=== PATIENT | male | born 2000 | race Caucasian/White ===

== ENCOUNTER 2020-05-13 21:49 | Emergency (ER) | payer OTHER, SELFPAY ==
[2020-05-13 22:09] VITALS: BP 128/64; PULSE 89; RESP 18; TEMP 37.3; O2SAT 97; BMI 24.4
--- NOTE | 2020-05-13 23:07 | ED_ITS ---
HPI - Wound/Laceration General Chief Complaint: Wound/Laceration Stated Complaint: Lip laceration Time Seen by Provider: 05/13/20 22:19 Source: patient Mode of arrival: ambulatory History of Present Illness HPI narrative: This is a 19-year-old male without significant past medical history who was struck in the mouth with a hockey puck denies any loss of consciousness and comes in with a hemostatic lip laceration. Unknown tetanus. Related Data Allergies Allergy/AdvReac Type Severity Reaction Status Date / Time No Known Allergies Allergy Verified 05/13/20 22:14 [No Known Allergies*] Review of Systems Review of Systems: Pertinent positives and negatives as stated in HPI 10 point review of systems is otherwise negative. [facility] Past Medical History Source: nursing notes reviewed Medical History No known health problems Social History Social History Alcohol intake: never Smoked in Last 30 Days: No Use of substances other than those prescribed or required for medical reasons: No Any prior treatment program specific to substance use: No Advance Directives: No Advance Directives Information Provided: No Physical Exam Vital Signs: Vital Signs: Last Vital Signs Temp 99.2 F 05/13/20 22:09 Pulse 89 05/13/20 22:09 Resp 18 05/13/20 22:09 BP 128/64 05/13/20 22:09 Pulse Ox 97 05/13/20 22:09 Body Mass Index 24.4 VITAL SIGNS: Reviewed. GENERAL: Well developed, well nourished, in no acute distress. HEAD: Normocephalic/atraumatic EYES: PERRLA, EOMI intact NOSE: Nares patent bilateral OROPHARYNX: no oral lesions noted, posterior pharynx clear, 1.5cm superficial laceration to the left outer upper lip/hemostatic/involving vermilion border NECK: Supple, no adenopathy LUNGS: Normal breath sounds.SpO2<97> CARDIOVASCULAR: Regular rate and rhythm without noted murmurs ABDOMEN: Soft, non-tender, non-distended with bowel sounds. NEUROLOGIC: Alert and oriented x 4. Course Course Course Narrative: This is a 19-year-old male with lip laceration and discussed repair with him especially with regards to aesthetic appearance and challenges given the vermilion border involvement. He acknowledges the challenges and would like to proceed. Patient received Tdap. Patient tolerated repair of lip laceration well, no observed complications, 6 interrupted 6-0 Prolene sutures will need to be removed. Procedures Laceration Laceration 1: Site: lip Side (If applicable): left (Upper) Size (cm): 2 Description: stellate, flap, irregular, clean and involves tashi border Depth: simple, single layer Local Anesthetic: lidocaine 1% Amount of anesthesia used (mL): 2 Pre-repair: wound explored, irrigated extensively and deep structures intact Skin layer closed with: other (Prolene) Size (cm): 6-0 Number of sutures: 6 Technique: simple, interrupted Subcutaneous layer closed with: chromic gut Size: 6-0 Number of sutures: 1 Technique: simple, interrupted Discharge Plan Discharge Clinical Impression: Laceration Patient Disposition: Home, Self-Care Instructions: Laceration (ED) Additional Instructions: May use [id number] Tylenol or ibuprofen for additional pain control. You will need to go to your primary care provider or return to this emergency department for suture removal in 7 days You will need to follow up with a dentist regarding the chipped left front tooth and the remaining injury to the left lower lip on the inside of the mouth will heal on its own. Do not hesitate to return to the emergency department should you have any further questions or concerns regarding your injuries. Referrals: Physician,Unknown [Primary Care Provider] - 2 days (Re-evaluation and suture removal in 7 days)
[2020-05-13] MEDS: Lidocaine HCl 1 % MPF 5 ML VIAL INFILTRATI (23:56)
--- NOTE | 2020-05-14 00:01 | PC.NURSE ---
PT LAC TO RIGHT UPPER LIP CLEANED AND SUTURED BY DR. ROSE LEFT JOSE.
== END 2020-05-14 00:26 | disposition home or self-care (01) ==
PROVIDERS: Emergency Provider Student in an Organized Health Care Education/Training Program
DX: S01.511A Laceration without foreign body of lip, initial encounter (principal); W21.220A Struck by ice hockey puck, initial encounter; Y93.22 Activity, ice hockey; Y92.330 Ice skating rink (indoor) (outdoor) as the place of occurrence of the external cause; Y99.9 Unspecified external cause status
CPT/HCPCS: 12053; 90471; 90715; 99284